=== PATIENT | female | born 1995 | race Caucasian/White ===

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

== ENCOUNTER 2017-03-23 19:11 | Emergency (ER) | payer SELFPAY ==
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
[2017-03-23 20:09] VITALS: BP 110/48
--- NOTE | 2017-03-24 06:34 | Diagnostic Imaging Report ---
SHA BOOGIE [facility] [address] [facility].[address] [address] Report Submission Date: Mar 23, 2017 7:58:50 PM CDT Patient Study Name: CHANTELL HERNANDEZ Date: Mar 23, 2017 7:44:49 PM CDT Modality Type: CR Gender: F Description: CHEST : 97 Institution: [facility] Physician: SHA BOOGIE Chest, PA and lateral History: Rib pain Findings: The heart, lungs, pleura, mediastinum and bony thorax are normal. Impression: Normal. Electronically signed on Mar 23, 2017 7:58:50 PM CDT by: Danny UNDERWOOD
== END 2017-03-23 20:05 | disposition home or self-care (01) ==
LOC: ED 19:11
DX: S00.81XA Abrasion of other part of head, initial encounter (principal); X58.XXXA Exposure to other specified factors, initial encounter; Y93.9 Activity, unspecified; Y99.9 Unspecified external cause status; Z04.71 Encounter for examination and observation following alleged adult physical abuse
CPT/HCPCS: 71020; 81025; 99283

== ENCOUNTER 2017-04-16 16:29 | Emergency (ER) | payer SELFPAY ==
--- NOTE | 2017-04-16 16:45 | ED Physician Documentation ---
General Adult - HISTORIAN Historian: patient - HPI Stated Complaint: Redness to Right Eye Lid Chief Complaint: General Adult Onset: hours (4) Timing: still present Severity: mild Further Comments: yes (she states she did wear a new make up last night and this am she had some redness on her right eye lid Denies any change in vision) Last known Well Code/Unknown Code: Unknown - ROS CONST: no problems EYES/ENT: other (skin irritation ) GI/: none MS/SKIN/LYMPH: rash NEURO/PSYCH: denies: headache, fainting, dizziness - PAST HX Past History: none Other History: none Surgeries/Procedures: none Immunizations: referred to PCP Allergies/Adverse Reactions: Allergies Allergy/AdvReac Type Severity Reaction Status Date / Time No Known Allergies Allergy Unverified 04/16/17 16:43 Home Medications: Ambulatory Orders Medication Instructions Recorded NK [NK] 10/01/16 - SOCIAL HX Smoking History: non-smoker Alcohol Use: none Drug Use: none - FAMILY HX Family History: No - VITAL SIGNS Vital Signs: Vital Signs Temp Pulse Resp BP Pulse Ox 97.8 F 77 18 114/81 98 04/16/17 16:30 04/16/17 16:30 04/16/17 16:30 04/16/17 16:30 04/16/17 16:30 - REVIEWED ASSESSMENTS Nursing Assessment Reviewed: Yes Vitals Reviewed: Yes General Adult Physical Exam - PHYSICAL EXAM GENERAL APPEARANCE: no distress EENT: MARCI, other (mild red irriatated skin on upper and lower right eye lid, conjuctiva without redness, no drainage ) NECK: normal inspection RESPIRATORY: no resp distress, chest non-tender, breath sounds normal CVS: reg rate & rhythm, heart sounds normal, equal pulses, no murmur ABDOMEN: soft SKIN: warm/dry EXTREMITIES: non-tender, normal range of motion NEURO: oriented X3, CN's nml as tested, motor nml Discharge Clincal Impression: Skin abnormalities Referrals: Primary Doctor,No [Primary Care Provider] - 2 Days Condition: Stable Disposition: 01 HOME, SELF-CARE Decision to Admit: NO Date of Decison to Admit: 04/16/17 Decision Time: 17:02
[2017-04-16 17:14] VITALS: BP 100/78
== END 2017-04-16 17:10 | disposition home or self-care (01) ==
LOC: ED 16:29
DX: R21 Rash and other nonspecific skin eruption (principal)
CPT/HCPCS: 99283

== ENCOUNTER 2017-05-11 19:16 | Emergency (ER) | payer SELFPAY ==
--- NOTE | 2017-05-11 19:37 | ED Physician Documentation ---
Upper Extremity Injury - HISTORIAN Historian: patient - HPI Chief Complaint: Upper Extremity Injury Additional Information: Patient fell down stairs and landed on her left shoulder/elbow. Had some immediate pain. Has had similar pain when she fell on it before. No swelling or brusing noted., has felt warm. Patient states she is been having some difficulties with moving especially rated of overhead and extending heart front of her. Patient does complain of pain in both the shoulder and elbow area. Patient denies any numbness. Onset: yesterday Modifying Factors: pain on movement Further Comments: no - ROS CONST: no problems - PAST HX Past History: Rt handed, other (asthma) Allergies/Adverse Reactions: Allergies Allergy/AdvReac Type Severity Reaction Status Date / Time No Known Allergies Allergy Verified 05/11/17 21:10 Home Medications: Ambulatory Orders Medication Instructions Recorded NK [NK] 10/01/16 - SOCIAL HX Smoking History: non-smoker Alcohol Use: none Drug Use: none - FAMILY HX Family History: other (DM) - VITAL SIGNS Vital Signs: Vital Signs Temp Pulse Resp BP Pulse Ox 98.9 F 84 18 112/80 99 05/11/17 21:00 05/11/17 21:00 05/11/17 21:00 05/11/17 21:00 05/11/17 19:17 ED Results Lab/Radiology - Radiology Radiology Impressions: Left elbow 3 views Date of Exam: May 11, 2017. History: LEFT ELBOW PAIN, FELL DOWN SOME STAIRS LAST NIGHT (Hx) Findings: There is no evidence of acute fracture or dislocation. The visualized portions of the distal left humerus, proximal left radius and proximal left ulna are intact. Impression: No acute osseous abnormality. Left shoulder 3 views Date of Exam: May 11, 2017. History: LEFT SHOULDER PAIN, FELL DOWN SOME STAIRS LAST NIGHT (Hx) Findings: There is no evidence of acute fracture or dislocation. The left humeral head is appropriate relationship with the glenoid fossa. The left clavicle and visualized left ribs are intact. Impression: No acute fracture or dislocation. - Orders Orders: ED Orders Category Date Time Status Sling to Affected Extremity 1T Care 05/11/17 20:56 Active ELBOW 3 VIEWS [RAD] Routine Exams 05/11/17 Taken SHOULDER 2 VIEWS OR MORE [RAD] Stat Exams 05/11/17 Taken Upper Extremity Injury Physic - Physical Exam General Appearance: alert, mild distress Hand: normal inspection, non-tender, no evidence of injury, normal ROM Wrist: normal inspection, non-tender, no evidence of injury, normal ROM, abrasions Elbow/Forearm: normal ROM, limited ROM (secondary to pain.), soft tissue tenderness. No: deformity, ecchymosis, swelling Shoulder: normal ROM, limited ROM, soft tissue tenderness. No: deformity, ecchymosis, swelling Neuro/Vascular/Tendon: no vascular compromise, motor nml, sensation nml Skin: warm,dry Head/ENT: nml inspection Neck/Back: nml inspection Resp/CVS: chest non-tender, breath sounds nml, heart sounds nml, lungs clear Discharge Clincal Impression: Contusion of left elbow Qualifiers: Encounter type: initial encounter Qualified Code(s): S50.02XA - Contusion of left elbow, initial encounter Contusion of left shoulder Qualifiers: Encounter type: initial encounter Qualified Code(s): S40.012A - Contusion of left shoulder, initial encounter Referrals: Primary Doctor,No [Primary Care Provider] - 2 Days Additional Instructions: Warm/cool compress to the shoulder and elbow area. Take Aleve 22omg tablet, 2 tablets with food twice a day. Do range on motion exercises. If symptoms are not improving in one week to follow-up with your primary care provider. Wear sling for the next one to two days. Condition: Stable Disposition: 01 HOME, SELF-CARE Decision to Admit: NO Date of Decison to Admit: 05/11/17 Decision Time: 20:52
[2017-05-11 21:10] VITALS: BP 112/80
--- NOTE | 2017-05-12 06:38 | Diagnostic Imaging Report ---
BRIANNA MURDOCK [facility] [id number] [facility].[address] [address] Report Submission Date: May 11, 2017 8:49:22 PM TOP EXECUTIVE Patient Study Name: CHANTELL HERNANDEZ Date: May 11, 2017 8:23:20 PM TOP EXECUTIVE Modality Type: CR Gender: F Description: UPPER EXTREMITY : 97 Institution: [facility] Physician: BRIANNA MURDOCK Left elbow 3 views Date of Exam: May 11, 2017. History: LEFT ELBOW PAIN, FELL DOWN SOME STAIRS LAST NIGHT (Hx) Findings: There is no evidence of acute fracture or dislocation. The visualized portions of the distal left humerus, proximal left radius and proximal left ulna are intact. Impression: No acute osseous abnormality. Electronically signed on May 11, 2017 8:49:22 PM TOP EXECUTIVE by: Russ UNDERWOOD
--- NOTE | 2017-05-12 06:39 | Diagnostic Imaging Report ---
BRIANNA MURDOCK [facility] [address] [facility].[address] [address] Report Submission Date: May 11, 2017 8:47:47 PM POISER BALANCE Patient Study Name: CHANTELL HERNANDEZ Date: May 11, 2017 8:16:47 PM POISER BALANCE Modality Type: CR Gender: F Description: SHOULDER : 97 Institution: [facility] Physician: BRIANNA MURDOCK Left shoulder 3 views Date of Exam: May 11, 2017. History: LEFT SHOULDER PAIN, FELL DOWN SOME STAIRS LAST NIGHT (Hx) Findings: There is no evidence of acute fracture or dislocation. The left humeral head is appropriate relationship with the glenoid fossa. The left clavicle and visualized left ribs are intact. Impression: No acute fracture or dislocation. Electronically signed on May 11, 2017 8:47:47 PM POISER BALANCE by: Russ UNDERWOOD
== END 2017-05-11 21:00 | disposition home or self-care (01) ==
LOC: ED 19:16
DX: S50.02XA Contusion of left elbow, initial encounter (principal); S40.012A Contusion of left shoulder, initial encounter; X58.XXXA Exposure to other specified factors, initial encounter; Y93.9 Activity, unspecified; Y99.9 Unspecified external cause status
CPT/HCPCS: 73030; 73080; 99283

== ENCOUNTER 2017-05-17 23:38 | Emergency (ER) | payer SELFPAY ==
--- NOTE | 2017-05-17 23:53 | ED Physician Documentation ---
Abdominal Pain - HISTORIAN Historian: patient, parent - HPI Stated Complaint: LLQ abdominal pain Chief Complaint: Abdominal Pain Onset: hours (1) Duration: constant Timing: better Context: denies: out of country travel, bad food, recent trauma Severity: moderate (7 on 1-10 scale ) Quality: pain, sharp Associated Symptoms: denies: fever, chills, nausea, vomiting, loss of appetite Exacerbated by: nothing (hurts all the time ) Relieved by: nothing Further Comments: yes (She states this started about 1 hour ago in the shower she had a sharp pain left lower quad. Her sister state the boyfriend felt a "lump" on the LLQ and she states she felt one "mabye on the right side" although she cant feel it now Her period was one week ago) - ROS CONST: no problems GI/: denies: constipation, dark urine, problems urinating MS/SKIN/LYMPH: denies: rash NEURO/PSYCH: none - SOCIAL HX Smoking History: non-smoker Alcohol Use: none Drug Use: none - FAMILY HX Family History: none - PAST HX Past History: none Ischemic Bowel Risk Factors: none Other History: none Surgeries/Procedures: none Immunizations: referred to PCP Home Medications: Ambulatory Orders Medication Instructions Recorded NK [NK] 10/01/16 Allergies/Adverse Reactions: Allergies Allergy/AdvReac Type Severity Reaction Status Date / Time No Known Allergies Allergy Verified 05/17/17 23:55 - VITAL SIGNS Vital Signs: Vital Signs Temp Pulse Resp BP Pulse Ox 98.3 F 82 16 111/76 99 05/17/17 23:40 05/17/17 23:40 05/17/17 23:40 05/17/17 23:40 05/17/17 23:40 - REVIEWED ASSESSMENTS Nursing Assessment Reviewed: Yes Vitals Reviewed: Yes Progress - Progress Progress: She is laying in the bed talking with her visitors. She denies any new pain. She is questioning why her friend was via blood work and she is worried she needs a blood test. She is constipated via the xray and constipation and how to treat this issue Mag Citrate, increase fluids, fiber increase DG ED Results Lab/Radiology - Radiology Radiology Impressions: Obstructive series without chest x-ray Clinical history: LOWER ABD PAIN Findings: Examination of the abdomen in supine and upright views demonstrates gas and stool throughout the colon. There is no obstruction or free air. Properitoneal fat lines are preserved. Visualized bony structures are intact and the lung bases are clear. Impression: 1. Gas and stool throughout the colon. 2. No obstruction or free air. Electronically signed on May 18, 2017 12:49:17 AM GIS INSTRUCTOR by: Franck Mattson - Orders Orders: ED Orders Category Date Time Status ABDOMEN COMPLETE [RAD] Stat Exams 05/18/17 Taken UA W/MICRO IF INDICATED Routine Lab 05/18/17 00:08 Ordered URINE HCG Stat Lab 05/18/17 00:01 Ordered Abdominal Pain Physical Exam - Physical Exam General Appearance: no acute distress EENT: eye inspection normal RESPIRATORY: no resp distress, chest non-tender, breath sounds normal CVS: reg rate & rhythm, heart sounds normal, equal pulses, no murmur ABDOMEN: soft, no organomegaly, normal bowel sounds, no distension, non-tender. No: guarding SKIN: warm/dry, normal color EXTREMITIES: non-tender, normal range of motion NEURO: oriented X3, CN's nml as tested, motor nml Vital Signs: Vital Signs Temp Pulse Resp BP Pulse Ox 98.3 F 82 16 111/76 99 05/17/17 23:40 05/17/17 23:40 05/17/17 23:40 05/17/17 23:40 05/17/17 23:40 Discharge Clincal Impression: Abdominal pain Qualifiers: Abdominal location: left lower quadrant Qualified Code(s): R10.32 - Left lower quadrant pain Referrals: Primary Doctor,No [Primary Care Provider] - 2 Days Condition: Stable Disposition: 01 HOME, SELF-CARE Decision to Admit: NO Date of Decison to Admit: 05/18/17 Decision Time: 00:56
[2017-05-17 23:56] VITALS: BP 111/76
[2017-05-18 06:10] LABS: APPEARANCE,URINE CLEAR (CLEAR); COLOR,URINE YELLOW (YELLOW); OCCULT BLOOD,URINE NEGATIVE (NEGATIVE); URINE HCG NEGATIVE (NEGATIVE); UROBILINOGEN URINE 0.2 Eu (0.2-1.0)
--- NOTE | 2017-05-18 09:07 | Diagnostic Imaging Report ---
ANTONIO VILLELA [facility] [address] [facility] [address], [place]. [address] Report Submission Date: May 18, 2017 12:49:17 AM DRESSED POULTRY GRADER Patient Study Name: CHANTELL HERNANDEZ Date: May 18, 2017 12:26:49 AM DRESSED POULTRY GRADER Modality Type: CR Gender: F Description: ABDOMEN : 97 Institution: [facility] Physician: ANTONIO VILLELA Obstructive series without chest x-ray Clinical history: LOWER ABD PAIN Findings: Examination of the abdomen in supine and upright views demonstrates gas and stool throughout the colon. There is no obstruction or free air. Properitoneal fat lines are preserved. Visualized bony structures are intact and the lung bases are clear. Impression: 1. Gas and stool throughout the colon. 2. No obstruction or free air. Electronically signed on May 18, 2017 12:49:17 AM DRESSED POULTRY GRADER by: Franck UNDERWOOD
== END 2017-05-18 01:05 | disposition home or self-care (01) ==
LOC: ED 23:38
DX: R10.32 Left lower quadrant pain (principal)
CPT/HCPCS: 74020; 81002; 81025; 99283

== ENCOUNTER 2017-06-15 18:41 | Emergency (ER) | payer SELFPAY ==
--- NOTE | 2017-06-15 19:17 | ED Physician Documentation ---
Nausea/Vomiting/Diarrhea - HISTORIAN Historian: patient - HPI Stated Complaint: nausea vomiting Chief Complaint: Nausea,Vomiting,Diarrhea Onset: days ago (7) Duration: other (on and off but usually vomiting is hourly) Last known Well Code/Unknown Code: Unknown Timing: gradual onset Context: denies: out of country travel, bad food, recent trauma Severity: mild Further Comments: yes (She states she was due for her period on 06.07.17 She states she is mostly nasueated in the AM. But she is eating and drinking ok. No fever. No bleeding .) - Associated Symptoms Vomiting: mild Diarrhea: other (no diarrhea) Abdominal Pain: aching - ROS CONST: none - PAST HX Past History: none Surgeries/Procedures: none Immunizations: UTD Allergies/Adverse Reactions: Allergies Allergy/AdvReac Type Severity Reaction Status Date / Time No Known Allergies Allergy Verified 05/17/17 23:55 Home Medications: Ambulatory Orders Medication Instructions Recorded NK [NK] 10/01/16 - SOCIAL HX Smoking History: non-smoker - FAMILY HX Family History: none - VITAL SIGNS Vital Signs: Vital Signs Temp Pulse Resp BP Pulse Ox 111/76 05/17/17 23:40 - REVIEWED ASSESSMENTS Nursing Assessment Reviewed: Yes Vitals Reviewed: Yes Nausea Physical Exam - EXAM General Appearance: no acute distress Neck: normal inspection Respiratory: no resp distress, chest non-tender, breath sounds normal CVS: reg rate & rhythm, heart sounds normal, equal pulses, no murmur Abdomen: non-tender. No: guarding, rebound Skin: warm/dry Extremities: non-tender Neuro/Psych: oriented X3, CN's nml as tested, motor nml, sensation nml Discharge Clincal Impression: UTI (urinary tract infection) Qualifiers: Urinary tract infection type: site unspecified Hematuria presence: without hematuria Qualified Code(s): N39.0 - Urinary tract infection, site not specified Referrals: Primary Doctor,No [Primary Care Provider] - 2 Days Comments: Macrobid 100 mg BID x 7 days Zofran 4 mg every 8 hours as needed for nausea [place] foods Increase fluids contact PCP if period does not start Return to Er for any concerning symptoms Disposition: HOME, SELF-CARE Decision to Admit: NO Date of Decison to Admit: 06/15/17 Decision Time: 19:27
[2017-06-15 19:25] VITALS: BP 126/62
[2017-06-16 06:03] LABS: APPEARANCE,URINE CLEAR (CLEAR); COLOR,URINE YELLOW (YELLOW); OCCULT BLOOD,URINE NEGATIVE (NEGATIVE); URINE HCG NEGATIVE (NEGATIVE); UROBILINOGEN URINE 0.2 Eu (0.2-1.0)
== END 2017-06-15 19:15 | disposition home or self-care (01) ==
LOC: ED 18:41
DX: N39.0 Urinary tract infection, site not specified (principal); R11.2 Nausea with vomiting, unspecified
CPT/HCPCS: 81002; 81025; 87086; 99282

== ENCOUNTER 2017-07-12 20:51 | Emergency (ER) | payer SELFPAY ==
--- NOTE | 2017-07-12 21:01 | ED Physician Documentation ---
General Adult - HISTORIAN Historian: patient - HPI Stated Complaint: possible Chief Complaint: Female Urogenital Problems Onset: days ago (5) Timing: still present Severity: mild Further Comments: yes (She states she was told by her dr to get to the nearest hospital or clinic for test. She has had some mild nausea. No other symptoms) Last known Well Code/Unknown Code: Unknown - ROS CONST: no problems CVS/RESP: none GI/: nausea NEURO/PSYCH: denies: headache, fainting, dizziness - PAST HX Past History: none Other History: none Surgeries/Procedures: other Immunizations: UTD Allergies/Adverse Reactions: Allergies Allergy/AdvReac Type Severity Reaction Status Date / Time No Known Allergies Allergy Verified 07/12/17 21:06 Home Medications: Ambulatory Orders Medication Instructions Recorded NK [NK] 10/01/16 - SOCIAL HX Smoking History: cigarettes Alcohol Use: none Drug Use: none - FAMILY HX Family History: No - VITAL SIGNS Vital Signs: Vital Signs Temp Pulse Resp BP Pulse Ox 126/62 06/15/17 19:15 - REVIEWED ASSESSMENTS Nursing Assessment Reviewed: Yes Vitals Reviewed: Yes General Adult Physical Exam - PHYSICAL EXAM GENERAL APPEARANCE: no distress EENT: eye inspection normal RESPIRATORY: no resp distress, chest non-tender, breath sounds normal CVS: reg rate & rhythm, heart sounds normal, no murmur ABDOMEN: soft, normal bowel sounds SKIN: warm/dry, normal color EXTREMITIES: non-tender, normal range of motion NEURO: oriented X3, CN's nml as tested Discharge Clincal Impression: Qualifiers: Weeks of gestation: less than 8 weeks Qualified Code(s): Z3A.01 - Less than 8 weeks gestation of Referrals: Primary Doctor,No [Primary Care Provider] - 2 Days Comments: 1. No meds without Dr advisement 2. Follow up with PCP for referral 3. Return to ER for any concerns Condition: Stable Disposition: 01 HOME, SELF-CARE Decision to Admit: NO Date of Decison to Admit: 07/12/17 Decision Time: 21:31
[2017-07-12 21:12] VITALS: BP 122/68
== END 2017-07-12 21:38 | disposition home or self-care (01) ==
LOC: ED 20:51
DX: Z3A.01 Less than 8 weeks gestation of pregnancy (principal)
CPT/HCPCS: 81025; 99283

== ENCOUNTER 2017-11-28 18:20 | Emergency (ER) | payer OTHER ==
--- NOTE | 2017-11-28 18:31 | ED Physician Documentation ---
General Adult - HISTORIAN Historian: patient - HPI Stated Complaint: leaking fluid in Chief Complaint: General Adult Onset: hours Timing: still present Severity: moderate Further Comments: yes (Pt is a 22 yo female at 26 and 2/7 weeks. Pt is followed at [facility] (Dr. Hwang & Dr. Suresh). Pt had abd cramping "like a period" early this morning. Cramping lasted up to an hour. This evening at work pt noticed loss of vag fluid.) - ROS CONST: no problems EYES/ENT: none CVS/RESP: none GI/: other (vag fluid) MS/SKIN/LYMPH: none - PAST HX Past History: none - SOCIAL HX Smoking History: other (former smoker) - FAMILY HX Family History: No - VITAL SIGNS Vital Signs: Vital Signs Temp Pulse Resp BP Pulse Ox 122/68 07/12/17 21:38 - REVIEWED ASSESSMENTS Nursing Assessment Reviewed: Yes Vitals Reviewed: Yes <Regis De Luna - Last Filed: 11/28/17 18:56> - VITAL SIGNS Vital Signs: Vital Signs Temp Pulse Resp BP Pulse Ox 97.3 F L 72 20 115/65 98 11/28/17 18:46 11/28/17 18:46 11/28/17 18:46 11/28/17 18:46 11/28/17 18:46 <DARA HANDY - Last Filed: 11/28/17 19:55> - PAST HX Allergies/Adverse Reactions: Allergies Allergy/AdvReac Type Severity Reaction Status Date / Time progesterone AdvReac Hives Verified 11/28/17 18:54 Home Medications: Ambulatory Orders Medication Instructions Recorded Vit No.129/Iron/Folic 1 each D 11/28/17 [ One Daily Tablet] Progress - Progress Progress: NS 1 L IVF slide neg for ferning Care transferred to Dara Handy at 1900. <Regis De Luna - Last Filed: 11/28/17 18:56> - Progress Progress: 1948, [id number] for transfer to [facility] per Dr. Johnson, OB. <DARA HANDY - Last Filed: 11/28/17 19:55> ED Results Lab/Radiology - Orders Orders: ED Orders Category Date Time Status UA [URINALYSIS] Routine Lab 11/28/17 Ordered 0.9 % Sodium Chloride [Normal Saline] 1,000 ml Med 11/28/17 18:46 Discontinued IV Q1H <DARA HANDY - Last Filed: 11/28/17 19:55> General Adult Physical Exam - PHYSICAL EXAM GENERAL APPEARANCE: mild distress EENT: pharynx normal NECK: normal inspection, supple RESPIRATORY: no resp distress, chest non-tender, breath sounds normal CVS: reg rate & rhythm, heart sounds normal ABDOMEN: soft, other (gravid) BACK: normal inspection, no CVA tenderness SKIN: warm/dry, normal color EXTREMITIES: non-tender, normal range of motion, no evidence of injury NEURO: oriented X3, motor nml, sensation nml <Regis De Luna - Last Filed: 11/28/17 18:56> Discharge <Regis De Luna - Last Filed: 11/28/17 18:56> Decision to Admit: NO Decision Time: 19:48 <DARA HANDY - Last Filed: 11/28/17 19:55> Clincal Impression: , Amniotic fluid leaking Referrals: Primary Doctor,No [Primary Care Provider] - 2 Days Condition: Good Disposition: 02 [facility]
[2017-11-28] MEDS ORDERED: 0.9 % SODIUM CHLORIDE 1,000 ML IV ONE (18:46)
[2017-11-29 03:38] VITALS: BP 102/71
[2017-11-29 08:28] LABS: APPEARANCE,URINE CLEAR (CLEAR); COLOR,URINE YELLOW (YELLOW); OCCULT BLOOD,URINE NEGATIVE (NEGATIVE); UROBILINOGEN URINE 0.2 Eu (0.2-1.0)
== END 2017-11-28 20:48 | disposition short-term general hospital (02) ==
LOC: ED 18:20
DX: O41.8X2 Other specified disorders of amniotic fluid and membranes, second trimester (principal)
CPT/HCPCS: 81002; 96365; 99284; J7030; S1016